=== PATIENT | male | born 1995 | race Caucasian/White ===

== ENCOUNTER 2024-11-17 11:33 | Observation (INO) ==
--- NOTE | 2024-11-17 12:10 | ED.PDOC ---
General ED Provider: Dr. HCERYL DICKEY MD Chief Complaint: Wound Check Stated Complaint: Patient is a 28-year-old with no significant past medical history who presents with complaint of headache, body aches, fever, chills, nasal congestion, cough and sores. The patient states that his respiratory symptoms started about a week ago. Patient states that cough is productive of yellow-green phlegm. Patient denies any chest pain or shortness of breath. Patient had nausea and vomiting earlier but they have now resolved. Patient denies any abdominal pain or urinary symptoms. Patient states that he has observed the skin lesions in his buttock area about 2 weeks ago and one of the lesions he has felt has been growing and deep. Patient and family ember deny any discharge. Patient denies any history of MRSA. Patient denies any other symptoms at this point of time. Time Seen by Provider: 11/17/24 11:41 Mode of Arrival: Walk-In Information Source: Patient Exam Limitations: No limitations Nursing and Triage Documentation Reviewed and Agree: Yes What is Opioid Naive?: *Opioid Naive implies the patient is not already taking opioids or not chronically receiving opioids on a daily basis. *PRN dosing is not "usually" associated with tolerance. *Patients are at higher risk of over-sedation and aspiration. What is Opioid Tolerant?: *Opioid Tolerance implies less than the expected response to an opioid. *Acquired tolerance is defined by the patient taking 60mg of oral morphine daily (or equianalgesic dose of another opioid) for 1 week or more. *Often associated with chronic pain. *May take more than usual dose to achieve desired pain control. Review of Systems Review Of Systems Constitutional: Reports Fever Eyes: Reports No symptoms Ears, Nose, Mouth, Throat: Reports Nose discharge Respiratory: Reports Cough; Denies Shortness of Breath Cardiac: Denies Chest pain, Lightheadedness, Palpitations or Syncope GI: Reports No symptoms : Reports No symptoms Musculoskeletal: Reports No symptoms Skin: Reports Lesions (Multiple scabbed lesions in the gluteal cleft in the gluteal area bilaterally, an abscess in the right axilla. The abscess in right axilla is about a quarter size, raised tender and fluctuant.) Neurological: Reports No symptoms Endocrine: Reports No symptoms Hematologic/Lymphatic: Reports No symptoms All Other Systems: Reviewed and Negative [facility] Family History Mother Cancer MATERNAL GRANDFATHER Diabetes Social History Smoking and tobacco status: Current every day smoker Tobacco type: e-cigarettes Tobacco: How many years used: 10 (1 pack per week, pt reports vapes constantly) Smokeless tobacco user: other Alcohol intake: former Year quit: 2023 Details: pt reports quit all alcohol one year ago Surgical History H/O wisdom tooth extraction K08.409 - Partial loss of teeth, unspecified cause, unspecified class (ICD- 10) Physical Exam Physical Exam Appearance: Reports Ill-appearing Ill-appearing: Mild Pain Distress: None Eyes: Reports ELAINE, EOMI and Conjunctiva clear ENT: Reports Nose normal and Oropharynx normal; Denies Erythema or Exudate Neck: Supple Respiratory: Reports Breath sounds clear, Breath sounds equal and Respirations nonlabored Cardiovascular: Reports Pulses normal, No murmur and Tachycardia GI/: Reports Soft, Nontender and Bowel sounds normal Musculoskeletal: Reports Normal strength and ROM intact Skin: Reports Other (Multiple skin lesions,, superficial abscesses, few with form scabs and few with some tunneling of the lesions in the gluteal area in the intergluteal cleft. There is a quarter sized abscess in the right axillary fold which is tender, raised and fluctuant.) Neurological: Reports Sensation intact and Motor intact Psychiatric: Reports Mood appropriate Procedures Incision and Drainage Site: Right axilla Instrument Used: Other (There was a central opening in the lesion in the right axilla and with pressure the opening opened up and about 3 cc of pus was drained. The pus was sent for cultures. Patient tolerated the procedure well and there were no complications.) I & D Procedure: Yes Sterile dressing applied; No Packing placed Lidocaine Used: No Type of Drainage: Present Pus Was Culture Obtained?: Yes Re-Evaluation Re-Evaluation Time of Re-Evaluation: 13:05 Status: Unchanged (The patient's partner called as he now discovered he has a big bump in his right armpit. On examination patient has an abscess which has an opening in the center on applying pressure, about 3 cc of pus was drained. The discharge was sent for cultures.) Physician Notification Case Discussed Admit To: Inpatient Consult With: Danyel Traore NP Critical Care Note Critical Care Note Total Critical Care Time (mins): 40 Course Course 11/17/24 12:35 11/17/24 12:35 Orders, Labs, Meds: Lab Review 11/17/24 11/17/24 11/17/24 12:07 12:12 12:35 WBC 2.96 L RBC 3.77 L Hgb 11.0 L Hct 31.0 L MCV 82.2 MCH 29.2 MCHC 35.5 H RDW Coeff of Hakan 12.2 Plt Count 166 Immature Gran % (Auto) 2.0 Neut % (Auto) 18.2 L Lymph % (Auto) 21.3 Williamson % (Auto) 54.4 H Eos % (Auto) 3.4 Baso % (Auto) 0.7 Neut # (Auto) 0.5 L Lymph # (Auto) 0.6 Williamson # (Auto) 1.6 Eos # (Auto) 0.1 Baso # (Auto) 0.0 Immature Gran # (Auto) 0.1 Sodium 131.9 L Potassium 2.91 L Chloride 93.4 L Carbon Dioxide 27.4 Anion Gap 14.01 BUN 6.7 L Creatinine 0.64 Estimated GFR (MDRD) 151.00 BUN/Creatinine Ratio 10.46 Glucose 157.3 H Hemoglobin A1c 4.93 Lactic Acid 2.35 H Calcium 8.72 Magnesium 1.86 Total Bilirubin 1.53 H AST 71.5 H ALT 29.2 Alkaline Phosphatase 102.7 Total Creatine Kinase < 20.0 L Total Protein 6.43 Albumin 3.49 L Globulin 2.94 Albumin/Globulin Ratio 1.18 Procalcitonin Urine Color Yellow Urine Clarity Clear Urine pH 6.5 Ur Specific [place] 1.015 Urine Protein 2+ H Urine Glucose (UA) Negative Urine Ketones Negative Urine Blood Trace-intact H Urine Nitrite Negative Urine Bilirubin Negative Urine Urobilinogen 2.0 H Ur Leukocyte Esterase Negative Urine Microscopic RBC 2-5 Ur Squamous Epith Cells 0-2 Urine Opiates Screen Negative Ur Oxycodone Screen Negative Urine Methadone Screen Negative Ur Barbiturates Screen Negative U Tricyclic Antidepress Negative Ur Phencyclidine Scrn Negative Ur Amphetamine Screen Negative U Methamphetamines Scrn Negative U Benzodiazepines Scrn Negative Urine Cocaine Screen Negative U Cannabinoids Screen Negative Influ A Molecular Assay Negative by naat Influ B Molecular Assay Negative by naat SARS CoV-2 RNA Rapid MARSHALL Negative 11/17/24 11/17/24 15:06 15:25 WBC RBC Hgb Hct MCV MCH MCHC RDW Coeff of Hakan Plt Count Immature Gran % (Auto) Neut % (Auto) Lymph % (Auto) Williamson % (Auto) Eos % (Auto) Baso % (Auto) Neut # (Auto) Lymph # (Auto) Williamson # (Auto) Eos # (Auto) Baso # (Auto) Immature Gran # (Auto) Sodium Potassium Chloride Carbon Dioxide Anion Gap BUN Creatinine Estimated GFR (MDRD) BUN/Creatinine Ratio Glucose Hemoglobin A1c Lactic Acid 0.97 Calcium Magnesium Total Bilirubin AST ALT Alkaline Phosphatase Total Creatine Kinase Total Protein Albumin Globulin Albumin/Globulin Ratio Procalcitonin 0.57 H Urine Color Urine Clarity Urine pH Ur Specific [place] Urine Protein Urine Glucose (UA) Urine Ketones Urine Blood Urine Nitrite Urine Bilirubin Urine Urobilinogen Ur Leukocyte Esterase Urine Microscopic RBC Ur Squamous Epith Cells Urine Opiates Screen Ur Oxycodone Screen Urine Methadone Screen Ur Barbiturates Screen U Tricyclic Antidepress Ur Phencyclidine Scrn Ur Amphetamine Screen U Methamphetamines Scrn U Benzodiazepines Scrn Urine Cocaine Screen U Cannabinoids Screen Influ A Molecular Assay Influ B Molecular Assay SARS CoV-2 RNA Rapid MARSHALL Orders Category Date Time Status PLACE PATIENT OBSERVATION .TO [facility] (MONITORED BED ADMISSION 11/17/24 15:07 Active ) ACTIVITY .Early Mobilization for VTE Prevention CARE 11/17/24 15:07 Active INTAKE & OUTPUT Q8HR CARE 11/17/24 15:05 Active TELEMETRY MONITORING TELE CARE 11/17/24 15:07 Active VITAL SIGNS Q8HR CARE 11/17/24 15:05 Active BLOOD CULTURE Stat LAB 11/17/24 12:42 Received CBC W/ AUTO DIFF DAILY@0600 LAB 11/18/24 06:00 Ordered CBC W/ AUTO DIFF DAILY@0600 LAB 11/19/24 06:00 Ordered CBC W/ AUTO DIFF Stat LAB 11/17/24 12:35 Completed CK [CREATINE KINASE] Stat LAB 11/17/24 12:35 Completed CMP [COMPREHENSIVE METABOLIC PANEL] Stat LAB 11/17/24 12:35 Completed COMPREHENSIVE METABOLIC PANEL DAILY@0600 LAB 11/18/24 06:00 Ordered COMPREHENSIVE METABOLIC PANEL DAILY@0600 LAB 11/19/24 06:00 Ordered COVID [SARS COV-2 RNA RAPID MARSHALL] Stat LAB 11/17/24 12:07 Completed CULTURE WOUND [WOUND CULTURE] Stat LAB 11/17/24 13:15 Received FLU A & B MOLECULAR [FLU A/B MOLECULAR] Stat LAB 11/17/24 12:07 Completed HEMOGLOBIN A1C Stat LAB 11/17/24 12:35 Completed LACTIC ACID Stat LAB 11/17/24 12:35 Completed LACTIC ACID Stat LAB 11/17/24 15:06 Completed LEGIONELLA URINARY ANTIGEN Routine LAB 11/17/24 12:10 Received MAGNESIUM Stat LAB 11/17/24 12:35 Completed MRSA SCREEN Routine LAB 11/17/24 20:35 Received PROCALCITONIN Stat LAB 11/17/24 15:25 Completed SPUTUM CULTURE Routine LAB 11/17/24 15:05 Uncollected STREP PNEUMO AG, URINE Routine LAB 11/17/24 12:10 Received UA [URINALYSIS C & S IF INDICATED] Stat LAB 11/17/24 12:12 Completed URINE DRUG SCREEN (RAPID FOR ED) [DRUG SCREEN, URINE, LAB 11/17/24 12:12 Completed RAPID] Stat Acetaminophen [Tylenol] Meds 11/17/24 15:07 Active 650 mg PO Q4H PRN Azithromycin Inj [Zithromax] 500 mg Meds 11/18/24 09:00 Active 0.9 % Sodium Chloride [Sodium Chloride] 250 ml IV DAILY Azithromycin Inj [Zithromax] 500 mg Meds 11/17/24 14:49 Discontinued 0.9 % Sodium Chloride [Sodium Chloride] 250 ml IV ONCE Ceftriaxone 1 gm Vial [Rocephin 1 gm Vial] Meds 11/17/24 14:49 Discontinued 1 gm IVP ONCE ONE Ceftriaxone/D5w 1 gm Premix [Rocephin 1 gm/50 ml D5w] Meds 11/18/24 09:00 Active 1 gm in 50 ml IV DAILY Ketorolac Tromethamine [Toradol] Meds 11/17/24 13:59 Discontinued 30 mg IVP ONCE ONE Potassium Chloride [K-Dur] Meds 11/17/24 14:31 Discontinued 40 meq PO ONCE STA Sodium Chloride 0.9% [Sodium Chloride] 1,000 ml Meds 11/17/24 15:30 Active IV 100 mls/hr Sodium Chloride 0.9% [Sodium Chloride] 1,000 ml Meds 11/17/24 13:59 Discontinued IV BOLUS CHEST, 1V AP ONLY Stat RADS 11/17/24 12:03 Completed Medications Generic Name Dose Route Start Last Admin Trade Name Normanq PRN Reason Stop Dose Admin Acetaminophen 650 mg 11/17/24 15:07 11/17/24 23:35 Acetaminophen 325 Mg Tablet PO 650 mg Q4H PRN Administration Mild Pain Albuterol/Ipratropium 3 ml 11/17/24 18:00 11/17/24 23:12 Ipratropium/Albuterol Vial.Neb NEB 3 ml RTQ6H POOJA Administration Sodium Chloride 1,000 mls @ 100 mls/hr 11/17/24 15:30 11/17/24 20:40 Sodium Chloride IV 100 mls/hr .Q10H POOJA Administration CEFTRIAXONE/D5W 1 GM PREMIX 1 gm in 50 mls @ 100 mls/hr 11/18/24 09:00 Rocephin 1 Gm/50 Ml D5w IV 11/21/24 08:59 DAILY POOJA Azithromycin 500 mg/ Sodium 250 mls @ 250 mls/hr 11/18/24 09:00 Chloride IV 11/21/24 08:59 DAILY POOJA Nicotine 1 patch 11/17/24 21:30 11/17/24 22:07 Nicotine 21 Mg Patch.Td24 TD 1 patch DAILY POOJA Administration Saccharomyces Boulardii 250 mg 11/17/24 21:00 11/17/24 22:06 Saccharomyces Boulardii 250 Mg Capsule PO 250 mg BID POOJA Administration Discontinued Medications Generic Name Dose Route Start Last Admin Trade Name Ivan PRN Reason Stop Dose Admin Ceftriaxone Sodium 1 gm 11/17/24 14:49 11/17/24 16:02 Ceftriaxone 1 Gm Vial IVP 11/17/24 14:50 1 gm ONCE ONE Administration Sodium Chloride 1,000 mls @ 1,000 mls/hr 11/17/24 13:59 11/17/24 14:30 Sodium Chloride IV 11/17/24 14:58 1,000 mls/hr BOLUS ONE Administration Azithromycin 500 mg/ Sodium 250 mls @ 250 mls/hr 11/17/24 14:49 11/17/24 16:05 Chloride IV 11/17/24 15:48 250 mls/hr ONCE ONE Administration Ketorolac Tromethamine 30 mg 11/17/24 13:59 11/17/24 14:31 Ketorolac Tromethamine 30 Mg/Ml Vial IVP 11/17/24 14:00 30 mg ONCE ONE Administration Potassium Chloride 40 meq 11/17/24 14:31 11/17/24 16:01 Potassium Chloride 20 Meq Tab PO 11/17/24 14:32 40 meq ONCE STA Administration Vital Signs: Temp Pulse Resp BP Pulse Ox 11/17/24 11:38 102.3 F H 112 H 20 130/87 100 Differential diagnosis include but not limited to flu, COVID, RSV, bacteremia, multiple skin abscesses, pneumonia, UTI, type 2 diabetes, MRSA infection. ER course: Patient is a 28-year-old male who presented with fever, cough, weakness and multiple skin abscesses. Labs show a white count of 2.96 and a hemoglobin of 11. The potassium was 2.9 and the lactic acid was 2.35. UA is negative for UTI. Patient has elevated blood glucose. In light of multiple skin abscesses, workup for type 2 diabetes was started with hemoglobin A1c. Meanwhile patient had a drainage from the right axillary region and with localized squeezing technique about 3 cc of pus was drained, wound cultures were sent for culture and sensitivity. Chest x-ray shows patient has right sided pneumonia. Patient was started on ceftriaxone and azithromycin. Ceftriaxone would cover his lungs and skin for possible staph infections. Discussed with Ms. León NP for the hospitalist and the patient was admitted for further management. Discharge Plan Discharge Patient Disposition: ADMITTED INPATIENT Discharge Problem: Hypokalemia, Elevated lactic acid level CAP (community acquired pneumonia) Qualifiers: Laterality: right Lung location: unspecified part of lung Qualified Code(s): J 18.9 - Pneumonia, unspecified organism Abscess of skin and subcutaneous tissue Qualifiers: Site of cutaneous abscess: unspecified site Qualified Code(s): L02.91 - Cutaneous abscess, unspecified Did you review [place] [employer] for ALL controlled substances?: Not Applicable ED Provider: CHERYL DICKEY Condition: Stable
[2024-11-17 12:39] LABS: MOLECULAR FLU A NEGATIVE BY NAAT (NEGATIVE); MOLECULAR FLU B NEGATIVE BY NAAT (NEGATIVE); SARS COV-2 RNA RAPID NAAT NEGATIVE (NEGATIVE)
[2024-11-17 12:56] LABS: BASOPHILS % (AUTO) 0.7 % (0.0-3.0); EOSINOPHILS # (AUTO) 0.1 K/ul (0.0-0.7); EOSINOPHILS % (AUTO) 3.4 % (0.0-7.0); IMMATURE GRANULOCYTE # (AUTO) 0.1 (0.0-1.0); LYMPHOCYTES # (AUTO) 0.6 K/uL (0.60-3.4); LYMPHOCYTES % (AUTO) 21.3 (10.0-50.0); MEAN CORPUSCULAR HEMOGLOBIN 29.2 pg (27.0-31.0); MEAN CORPUSCULAR HGB CONC 35.5 (31.8-35.4); MEAN CORPUSCULAR VOLUME 82.2 fl (80.0-94.0); MONOCYTES # (AUTO) 1.6 K/uL (0.4-2.0); MONOCYTES % (AUTO) 54.4 (0-10); NEUTROPHILS # (AUTO) 0.5 K/ul (2.0-6.9); NEUTROPHILS % (AUTO) 18.2 % (42.2-75.2); PLATELET COUNT 166 10^3/uL (140-440); RDW COEFFICIENT OF VARIATION 12.2 % (11.6-14.8); RED BLOOD COUNT 3.77 10^6/ul (4.70-6.10); WHITE BLOOD COUNT 2.96 K/ul (4.2-10.2)
[2024-11-17 13:03] LABS: BILIRUBIN,URINE Negative (NEGATIVE); CLARITY,URINE Clear (CLEAR); COLOR,URINE Yellow (YELLOW); GLUCOSE, URINE (UA) Negative (NEGATIVE); KETONES,URINE Negative (NEGATIVE); LEUKOCYTE ESTERASE ,URINE Negative (NEGATIVE); NITRITE,URINE Negative (NEGATIVE); PH,URINE 6.5 (5-9); PROTEIN,URINE 2+ (NEGATIVE); URINE, BLOOD Trace-intact (NEGATIVE)
[2024-11-17 13:06] LABS: SQUAMOUS EPITHELIAL CELL,UR 0-2 (0-5)
[2024-11-17 13:10] LABS: AMPHETAMINE SCREEN,URINE NEGATIVE (NEGATIVE); BARBITURATE SCREEN,URINE NEGATIVE (NEGATIVE); BENZODIAZEPINES SCREEN,URINE NEGATIVE (NEGATIVE); CANNABINOID SCREEN,URINE NEGATIVE (NEGATIVE); COCAIN SCREEN,URINE NEGATIVE (NEGATIVE); METHADONE URINE SCREEN NEGATIVE (NEGATIVE); METHAMPHETAMINES SCREEN,URINE NEGATIVE (NEGATIVE); OPIATE SCREEN,URINE NEGATIVE (NEGATIVE); OXYCODONE URINE SCREEN NEGATIVE (NEGATIVE); PHENCYCLIDINE SCREEN,URINE NEGATIVE (NEGATIVE); TRICYCLIC ANTIDEPRESSANTS URIN NEGATIVE (NEGATIVE)
[2024-11-17 13:11] LABS: ALANINE AMINOTRANSFERASE 29.2 U/L (0-50); ALBUMIN 3.49 g/dL (3.5-5.0); ALKALINE PHOSPHATASE 102.7 U/L (38-126); ASPARTATE AMINO TRANSFERASE 71.5 U/L (17-59); BILIRUBIN,TOTAL 1.53 mg/dL (0.2-1.3); BLOOD UREA NITROGEN 6.7 mg/dL (9-20); CALCIUM 8.72 mg/dL (8.4-10.2); CARBON DIOXIDE 27.4 mmol/L (22-30.0); CHLORIDE 93.4 mmol/L (98-107); CREATINE KINASE < 20.0 U/L (55-170); CREATININE 0.64 mg/dL (0.60-1.10); GLUCOSE 157.3 mg/dL (74-106); POTASSIUM 2.91 mmol/L (3.5-5.1); SODIUM 131.9 mmol/L (134.5-145); TOTAL PROTEIN 6.43 g/dL (6.3-8.2)
[2024-11-17] MEDS ORDERED: TORADOL IM ONE (13:58)
[2024-11-17] MEDS: SODIUM CHLORIDE 1,000 ML IV ONE (14:30)
[2024-11-17] MEDS: TORADOL IVP ONE (14:31)
--- NOTE | 2024-11-17 14:41 | DI ---
EXAM: CHEST RADIOGRAPH (1 VIEW) TECHNIQUE: Frontal Chest Radiograph. HISTORY: Shortness of breath COMPARISON: None. FINDINGS: Lines, Tubes, Devices: None Lungs and Pleura: Right mid lung opacities. No pleural effusion or pneumothorax. Cardiac silhouette: Normal. Bones: No acute abnormality. IMPRESSION: Right mid lung opacities concerning for pneumonia. Clinical and imaging follow-up to ensure resolution and exclude other etiologies.
[2024-11-17] MEDS: TYLENOL PO PRN (16:00)
[2024-11-17] MEDS: K-DUR PO STA (16:01)
[2024-11-17] MEDS: ROCEPHIN 1 GM VIAL IVP ONE (16:02)
[2024-11-17] MEDS: ZITHROMAX 500 MG in SODIUM CHLORIDE 250 ML IV ONE (16:05)
[2024-11-17] MEDS: DUONEB NEB SCH (18:02)
--- NOTE | 2024-11-17 19:46 | PCM ---
Date of Service Date Seen by Provider: 11/17/24 Time Seen by Provider: 16:00 Admit Day/Time Admission Date: 11/17/24 Reason for Admission Chief Complaint: SEPSIS,CAP,SKIN ABSCESS Hospital Provider Hospital Provider[facility] History of Present Illness History of Present Illness: 28 yo male presented to the ER initially for wound check to buttocks. Patient states he has issues with "boils" to this region and also found to have one to his R axilla. Concerned for infection. ER provider drainage 3 cc out of R axilla with culture. Upon arrival to ER patient had 102 fever ad tachycardia 112. Reports he has had a cough and not felt well for the past 8 days. Cough with productive yellow/green sputum the last 2-3 days. Found to have R lobe pneumonia, elevated lactic acid, low WBC, low sodium, and low potassium. Admitted to [facility] observation. Case Discussed With Case Discussed With: Patient's case was discussed with the ER Physicians, Dr. Rogers. Allergies Allergies Allergy/AdvReac Type Severity Reaction Status Date / Time No Known Allergies Allergy Unverified 11/17/24 11:41 Current Medications Home Medications Acetaminophen (Acetaminophen 325 Mg Tablet) 650 mg PO Q4H PRN PRN Reason: Mild Pain Last Admin: 11/17/24 16:00 Dose: 650 mg Albuterol/Ipratropium (Ipratropium/Albuterol Vial.Neb) 3 ml NEB RTQ6H POOJA Last Admin: 11/17/24 18:02 Dose: 3 ml Sodium Chloride (Sodium Chloride) 1,000 mls @ 100 mls/hr IV .Q10H POOJA Last Admin: 11/17/24 20:40 Dose: 100 mls/hr CEFTRIAXONE/D5W 1 GM PREMIX (Rocephin 1 Gm/50 Ml D5w) 1 gm in 50 mls @ 100 mls/hr IV DAILY POOJA Stop: 11/21/24 08:59 Azithromycin 500 mg/ Sodium (Chloride) 250 mls @ 250 mls/hr IV DAILY POOJA Stop: 11/21/24 08:59 Nicotine (Nicotine 21 Mg Patch.Td24) 1 patch TD DAILY POOJA Saccharomyces Boulardii (Saccharomyces Boulardii 250 Mg Capsule) 250 mg PO BID POOJA 1 [No Reported Medications] 11/17/24 [History Confirmed 11/17/24] Opioid Naive vs. Tolerant Does Patient Take Opioids?: No Is Patient Opioid Naive?: Yes What is Opioid Naive?: *Opioid Naive implies the patient is not already taking opioids or not chronically receiving opioids on a daily basis. *PRN dosing is not "usually" associated with tolerance. *Patients are at higher risk of over-sedation and aspiration. Is Patient Opioid Tolerant?: No What is Opioid Tolerant?: *Opioid Tolerance implies less than the expected response to an opioid. *Acquired tolerance is defined by the patient taking 60mg of oral morphine daily (or equianalgesic dose of another opioid) for 1 week or more. *Often associated with chronic pain. *May take more than usual dose to achieve desired pain control. Review of Systems Constitutional: Reports Fever Head: Reports Normocephalic Eyes: Reports No symptoms Ears: Reports No symptoms Nose: Reports No symptoms Mouth: Reports No symptoms Throat: Reports No symptoms Cardiovascular: Reports No symptoms Respiratory: Reports Cough and Wheeze Gastrointestinal: Reports No symptoms Genitourinary: Reports No Symptoms Musculoskeletal: Reports No symptoms Dermatologic: Reports Skin Changes (multiple superficial abscesses to buttocks, 1 to armpit) Endocrine: Reports No symptoms Hematology: Reports No symptoms Immunology: Reports No symptoms Neurological: Reports No symptoms Psychiatric: Reports No symptoms Physical examination Most Recent Vital Signs: Most Recent Vital Signs Temperature 102.3 F H 11/17/24 11:38 Temperature Source Infrared 11/17/24 11:38 Pulse Rate 112 H 11/17/24 11:38 Respiratory Rate 20 11/17/24 11:38 Blood Pressure 130/87 11/17/24 11:38 O2 Sat by Pulse Oximetry 100 11/17/24 11:38 Height 5 ft 8 in 11/17/24 11:38 Weight 65 kg 11/17/24 11:38 Appearance: Positive No Apparent Distress, Alert and Oriented x3 and Ill- Appearing Skin: Positive Warm, Good Turgor and Other (1 pea sized area to L buttock with tunneling, 2-3 other scattered healing superficial abscesses to bileral buttocks, quarter/half dollar sized area to R axilla, no drainage present, erythema and swelling present) HEENT: Positive Normocephalic and PERRLA Neck: Positive Supple and Midline Trachea Chest/Lungs: Positive Symmetrical With Equal Breath Sounds, Rhonci, Wheezes and Good Air Movement all 4 Lung Lazar Heart: Positive RRR and Pulses Normal GI/: Positive Soft, Nontender, Bowel Sounds Normal and No Distention Musculoskeletal: Positive Not Examined Extremities: Positive Intact Peripheral Pulses, Stable Joints Without Laxity and Good ROM in All Joints Neurological: Positive Sensation Intact, Motor intact, Reflexes Intact, Alert, Oriented and Muscle Strength 5/5 in Upper and Lower Extremities Bilaterally Labs This Visit Labs This Visit: Labs This Visit 11/17/24 11/17/24 11/17/24 12:07 12:12 12:35 WBC 2.96 L RBC 3.77 L Hgb 11.0 L Hct 31.0 L MCV 82.2 MCH 29.2 MCHC 35.5 H RDW Coeff of Hakan 12.2 Plt Count 166 Immature Gran % (Auto) 2.0 Neut % (Auto) 18.2 L Lymph % (Auto) 21.3 Hunt % (Auto) 54.4 H Eos % (Auto) 3.4 Baso % (Auto) 0.7 Neut # (Auto) 0.5 L Lymph # (Auto) 0.6 Hunt # (Auto) 1.6 Eos # (Auto) 0.1 Baso # (Auto) 0.0 Immature Gran # (Auto) 0.1 Sodium 131.9 L Potassium 2.91 L Chloride 93.4 L Carbon Dioxide 27.4 Anion Gap 14.01 BUN 6.7 L Creatinine 0.64 Estimated GFR (MDRD) 151.00 BUN/Creatinine Ratio 10.46 Glucose 157.3 H Hemoglobin A1c 4.93 Lactic Acid 2.35 H Calcium 8.72 Magnesium 1.86 Total Bilirubin 1.53 H AST 71.5 H ALT 29.2 Alkaline Phosphatase 102.7 Total Creatine Kinase < 20.0 L Total Protein 6.43 Albumin 3.49 L Globulin 2.94 Albumin/Globulin Ratio 1.18 Procalcitonin Urine Color Yellow Urine Clarity Clear Urine pH 6.5 Ur Specific [place] 1.015 Urine Protein 2+ H Urine Glucose (UA) Negative Urine Ketones Negative Urine Blood Trace-intact H Urine Nitrite Negative Urine Bilirubin Negative Urine Urobilinogen 2.0 H Ur Leukocyte Esterase Negative Urine Microscopic RBC 2-5 Ur Squamous Epith Cells 0-2 Urine Opiates Screen Negative Ur Oxycodone Screen Negative Urine Methadone Screen Negative Ur Barbiturates Screen Negative U Tricyclic Antidepress Negative Ur Phencyclidine Scrn Negative Ur Amphetamine Screen Negative U Methamphetamines Scrn Negative U Benzodiazepines Scrn Negative Urine Cocaine Screen Negative U Cannabinoids Screen Negative Influ A Molecular Assay Negative by naat Influ B Molecular Assay Negative by naat SARS CoV-2 RNA Rapid MARSHALL Negative 11/17/24 11/17/24 15:06 15:25 WBC RBC Hgb Hct MCV MCH MCHC RDW Coeff of Hakan Plt Count Immature Gran % (Auto) Neut % (Auto) Lymph % (Auto) Hunt % (Auto) Eos % (Auto) Baso % (Auto) Neut # (Auto) Lymph # (Auto) Hunt # (Auto) Eos # (Auto) Baso # (Auto) Immature Gran # (Auto) Sodium Potassium Chloride Carbon Dioxide Anion Gap BUN Creatinine Estimated GFR (MDRD) BUN/Creatinine Ratio Glucose Hemoglobin A1c Lactic Acid 0.97 Calcium Magnesium Total Bilirubin AST ALT Alkaline Phosphatase Total Creatine Kinase Total Protein Albumin Globulin Albumin/Globulin Ratio Procalcitonin 0.57 H Urine Color Urine Clarity Urine pH Ur Specific [place] Urine Protein Urine Glucose (UA) Urine Ketones Urine Blood Urine Nitrite Urine Bilirubin Urine Urobilinogen Ur Leukocyte Esterase Urine Microscopic RBC Ur Squamous Epith Cells Urine Opiates Screen Ur Oxycodone Screen Urine Methadone Screen Ur Barbiturates Screen U Tricyclic Antidepress Ur Phencyclidine Scrn Ur Amphetamine Screen U Methamphetamines Scrn U Benzodiazepines Scrn Urine Cocaine Screen U Cannabinoids Screen Influ A Molecular Assay Influ B Molecular Assay SARS CoV-2 RNA Rapid MARSHALL Imaging Imaging: EXAM: CHEST RADIOGRAPH (1 VIEW) TECHNIQUE: Frontal Chest Radiograph. HISTORY: Shortness of breath COMPARISON: None. FINDINGS: Lines, Tubes, Devices: None Lungs and Pleura: Right mid lung opacities. No pleural effusion or pneumothorax. Cardiac silhouette: Normal. Bones: No acute abnormality. IMPRESSION: Right mid lung opacities concerning for pneumonia. Clinical and imaging follow-up to ensure resolution and exclude other etiologies. Review Statement Review Statement: I have independently reviewed and interpreted the labs/EKGs/imaging that were ordered by the ER provider. I have reviewed all outside records that are available currently in our EMR including imaging/notes/labs from previous visits. Plan Plan: 1. Sepsis in setting of CAP and Axilla Abscess - blood cultures pending, IV fluids started in ER but sepsis bolus was not given, lactic acid improved with 1L fluids, rocephin and azith ordered 2. CAP - rocephin and azith, nebs ordered d/t wheezing, not hypoxic so holding on steroids, mrsa, strep pneumo, legionella, and sputum ordered 3. Axilla Abscess - covering with rocephin, wound culture pending 4. Hidradenitis Suppurativa - discussed cleaning habits and importance of keeping areas dry when able, patient would likely benefit from daily doxycyline for prevention 5.Hyponatremia - mild, IV fluids ordered 6. Hypokalemia -mild, replacement ordered DVT Prophylaxis: Ambulation Time Spent: Greater than 80 minutes spent with patient, 50% of the time spent with this patient was devoted to counseling and coordination of care. [facility] Plannin minutes spent discussing advance care planning. Smoking Cessation: 3-10 minutes spent discussing smoking cessation. Disposition: Admit to: Med/Surg Observation Full Code Discussed Plan of Care with Dr. Nicolás Goss. Medications Medication Orders: Medications Ordered Category Date Time Status Acetaminophen [Tylenol] Meds 11/17/24 15:07 Active 650 mg PO Q4H PRN Azithromycin Inj [Zithromax] 500 mg Meds 11/18/24 09:00 Active 0.9 % Sodium Chloride [Sodium Chloride] 250 ml IV DAILY Ceftriaxone/D5w 1 gm Premix [Rocephin 1 gm/50 ml D5w] Meds 11/18/24 09:00 Active 1 gm in 50 ml IV DAILY Ipratropium/Albuterol Neb [Duoneb] Meds 11/17/24 18:00 Active 3 ml NEB RTQ6H Sodium Chloride 0.9% [Sodium Chloride] 1,000 ml Meds 11/17/24 15:30 Active IV 100 mls/hr
[2024-11-17] MEDS: SODIUM CHLORIDE 1,000 ML IV SCH (20:40)
[2024-11-17 21:32] VITALS: BMI 22.1
[2024-11-17] MEDS: FLORASTOR PO SCH (22:06)
[2024-11-17] MEDS: NICODERM 21 MG TD SCH (22:07)
[2024-11-18 05:42] LABS: BASOPHILS % (AUTO) 0.6 % (0.0-3.0); EOSINOPHILS # (AUTO) 0.1 K/ul (0.0-0.7); EOSINOPHILS % (AUTO) 2.8 % (0.0-7.0); HEMATOCRIT 27.6 % (42.0-52.0); HEMOGLOBIN 9.5 g/dl (14.0-18.0); IMMATURE GRANULOCYTE # (AUTO) 0.1 (0.0-1.0); IMMATURE GRANULOCYTE % (AUTO) 2.5 % (0.0-5.0); LYMPHOCYTES # (AUTO) 1.2 K/uL (0.60-3.4); LYMPHOCYTES % (AUTO) 38.3 (10.0-50.0); MEAN CORPUSCULAR HGB CONC 34.4 (31.8-35.4); MEAN CORPUSCULAR VOLUME 84.1 fl (80.0-94.0); MONOCYTES # (AUTO) 1.2 K/uL (0.4-2.0); MONOCYTES % (AUTO) 37.4 (0-10); NEUTROPHILS # (AUTO) 0.6 K/ul (2.0-6.9); NEUTROPHILS % (AUTO) 18.4 % (42.2-75.2); PLATELET COUNT 167 10^3/uL (140-440); RDW COEFFICIENT OF VARIATION 12.3 % (11.6-14.8); RED BLOOD COUNT 3.28 10^6/ul (4.70-6.10); WHITE BLOOD COUNT 3.21 K/ul (4.2-10.2)
[2024-11-18 06:04] LABS: ALANINE AMINOTRANSFERASE 44.3 U/L (0-50); ALBUMIN 3.02 g/dL (3.5-5.0); ALKALINE PHOSPHATASE 120.3 U/L (38-126); ASPARTATE AMINO TRANSFERASE 54.5 U/L (17-59); BILIRUBIN,TOTAL 0.91 mg/dL (0.2-1.3); BLOOD UREA NITROGEN 6.8 mg/dL (9-20); CALCIUM 8.18 mg/dL (8.4-10.2); CARBON DIOXIDE 26.9 mmol/L (22-30.0); CHLORIDE 98.5 mmol/L (98-107); CREATININE 0.71 mg/dL (0.60-1.10); GLUCOSE 122.2 mg/dL (74-106); POTASSIUM 3.38 mmol/L (3.5-5.1); SODIUM 133.9 mmol/L (134.5-145); TOTAL PROTEIN 5.74 g/dL (6.3-8.2)
[2024-11-18] MEDS: ROCEPHIN 1 GM/50 ML D5W 1 GM/50 ML BAG IV SCH (08:40)
[2024-11-18] MEDS ORDERED: PHARM CONSULT:VANCO IV MAINTENANCE DOSING IV ONE (09:08)
[2024-11-18] MEDS: ZITHROMAX 500 MG in SODIUM CHLORIDE 250 ML IV SCH (09:13)
[2024-11-18] MEDS: VANCOMYCIN 1.5 GRAM/300 ML PREMIX 1.5 GM/300 ML BAG IV ONE (09:49)
[2024-11-18] MEDS: K-DUR PO ONE (09:58)
--- NOTE | 2024-11-18 12:26 | PCM.PROG ---
Date/Time Seen Date Seen by Provider: 11/18/24 Time Seen by Provider: 09:30 Provider Provider: RAYA SAMUEL, [facility] Chief Complaint Chief Complaint: SEPSIS,CAP,SKIN ABSCESS Subjective Subjective: Feeling some better today. Swelling improving to R axilla. Fever present overnight. Discussed further causes of skin abscesses. Objective Appearance: Positive No Apparent Distress, Alert and Oriented x3 and Ill- Appearing Chest/Lungs: Positive Symmetrical With Equal Breath Sounds, Clear to Auscultation Bilaterally and Good Air Movement all 4 Lung Lazar Heart: Positive RRR and Pulses Normal GI/: Positive Soft, Nontender, Bowel Sounds Normal and No Distention Musculoskeletal: Positive Not Examined Neurological: Positive Sensation Intact, Motor intact, Alert and Oriented Additional Findings: Swelling and erythema improving to R axilla area, no discharge R eye more swollen today from hitting on bedside table at home - no erythema or drainage Vital Signs Vital Signs: Vital Signs: Last 24 Hours 11/17/24 19:54 11/17/24 19:54 11/17/24 20:00 Temperature 97.3 F L Temperature Source Temporal Artery Scan Pulse Rate 71 Respiratory Rate 20 Blood Pressure Blood Pressure Mean Blood Pressure Left Arm 119/71 Blood Pressure Location Blood Pressure Position Supine O2 Sat by Pulse Oximetry 99 Oxygen Delivery Method Room Air Room Air Room Air Height 5 ft 8 in Weight 66.1 kg Telemetry Type Telemetry Monitoring Telemetry Heart Rate EKG OH Interval EKG QRS Interval Telemetry Strip Reading 11/17/24 21:00 11/17/24 22:00 11/17/24 22:30 Temperature Temperature Source Pulse Rate Respiratory Rate Blood Pressure Blood Pressure Mean Blood Pressure Left Arm Blood Pressure Location Blood Pressure Position O2 Sat by Pulse Oximetry Oxygen Delivery Method Room Air Room Air Height Weight Telemetry Type Remote Telemetry Telemetry Monitoring Started Telemetry Heart Rate 80 EKG OH Interval 0.15 EKG QRS Interval 0.08 Telemetry Strip Reading SR 11/17/24 23:00 11/17/24 23:34 11/18/24 00:00 Temperature 100.6 F H Temperature Source Temporal Artery Scan Pulse Rate Respiratory Rate Blood Pressure Blood Pressure Mean Blood Pressure Left Arm Blood Pressure Location Blood Pressure Position O2 Sat by Pulse Oximetry Oxygen Delivery Method Room Air Room Air Room Air Height Weight Telemetry Type Telemetry Monitoring Telemetry Heart Rate EKG OH Interval EKG QRS Interval Telemetry Strip Reading 11/18/24 01:00 11/18/24 01:00 11/18/24 02:00 Temperature Temperature Source Pulse Rate Respiratory Rate Blood Pressure Blood Pressure Mean Blood Pressure Left Arm Blood Pressure Location Blood Pressure Position O2 Sat by Pulse Oximetry Oxygen Delivery Method Room Air Room Air Height Weight Telemetry Type Remote Telemetry Telemetry Monitoring Continues Telemetry Heart Rate 102 H EKG OH Interval 0.15 EKG QRS Interval 0.06 Telemetry Strip Reading SINUS TACHYCARDIA 11/18/24 03:00 11/18/24 04:00 11/18/24 05:00 Temperature Temperature Source Pulse Rate Respiratory Rate Blood Pressure Blood Pressure Mean Blood Pressure Left Arm Blood Pressure Location Blood Pressure Position O2 Sat by Pulse Oximetry Oxygen Delivery Method Room Air Room Air Room Air Height Weight Telemetry Type Telemetry Monitoring Telemetry Heart Rate EKG OH Interval EKG QRS Interval Telemetry Strip Reading 11/18/24 05:21 11/18/24 06:00 11/18/24 07:00 Temperature 98.1 F Temperature Source Temporal Artery Scan Pulse Rate 98 Respiratory Rate 17 Blood Pressure 125/70 Blood Pressure Mean 88 Blood Pressure Left Arm Blood Pressure Location Left Arm Blood Pressure Position Supine O2 Sat by Pulse Oximetry 98 Oxygen Delivery Method Room Air Room Air Room Air Height Weight Telemetry Type Telemetry Monitoring Telemetry Heart Rate EKG OH Interval EKG QRS Interval Telemetry Strip Reading 11/18/24 07:00 11/18/24 08:00 11/18/24 08:00 Temperature Temperature Source Pulse Rate Respiratory Rate Blood Pressure Blood Pressure Mean Blood Pressure Left Arm Blood Pressure Location Blood Pressure Position O2 Sat by Pulse Oximetry Oxygen Delivery Method Room Air Room Air Height Weight Telemetry Type Remote Telemetry Telemetry Monitoring Continues Telemetry Heart Rate 91 EKG OH Interval 0.12 EKG QRS Interval 0.06 Telemetry Strip Reading NSR 11/18/24 09:00 11/18/24 10:00 11/18/24 11:00 Temperature Temperature Source Pulse Rate Respiratory Rate Blood Pressure Blood Pressure Mean Blood Pressure Left Arm Blood Pressure Location Blood Pressure Position O2 Sat by Pulse Oximetry Oxygen Delivery Method Room Air Room Air Room Air Height Weight Telemetry Type Telemetry Monitoring Telemetry Heart Rate EKG OH Interval EKG QRS Interval Telemetry Strip Reading Lab Results Lab Results: Lab Results: Last 24 Hours 11/18/24 11/17/24 11/17/24 05:17 15:25 15:06 WBC 3.21 L RBC 3.28 L Hgb 9.5 L Hct 27.6 L MCV 84.1 MCH 29.0 MCHC 34.4 RDW Coeff of Hakan 12.3 Plt Count 167 Immature Gran % (Auto) 2.5 Neut % (Auto) 18.4 L Lymph % (Auto) 38.3 [place] % (Auto) 37.4 H Eos % (Auto) 2.8 Baso % (Auto) 0.6 Neut # (Auto) 0.6 L Lymph # (Auto) 1.2 [place] # (Auto) 1.2 Eos # (Auto) 0.1 Baso # (Auto) 0.0 Immature Gran # (Auto) 0.1 Sodium 133.9 L Potassium 3.38 L Chloride 98.5 Carbon Dioxide 26.9 Anion Gap 11.88 BUN 6.8 L Creatinine 0.71 Estimated GFR (MDRD) 134.00 BUN/Creatinine Ratio 9.57 Glucose 122.2 H Hemoglobin A1c Lactic Acid 0.97 Calcium 8.18 L Magnesium Total Bilirubin 0.91 AST 54.5 ALT 44.3 Alkaline Phosphatase 120.3 Total Creatine Kinase Total Protein 5.74 L Albumin 3.02 L Globulin 2.72 Albumin/Globulin Ratio 1.11 Procalcitonin 0.68 H 0.57 H Urine Color Urine Clarity Urine pH Ur Specific Scott Urine Protein Urine Glucose (UA) Urine Ketones Urine Blood Urine Nitrite Urine Bilirubin Urine Urobilinogen Ur Leukocyte Esterase Urine Microscopic RBC Ur Squamous Epith Cells Urine Opiates Screen Ur Oxycodone Screen Urine Methadone Screen Ur Barbiturates Screen U Tricyclic Antidepress Ur Phencyclidine Scrn Ur Amphetamine Screen U Methamphetamines Scrn U Benzodiazepines Scrn Urine Cocaine Screen U Cannabinoids Screen Influ A Molecular Assay Influ B Molecular Assay SARS CoV-2 RNA Rapid MARSHALL 11/17/24 11/17/24 11/17/24 12:35 12:12 12:07 WBC 2.96 L RBC 3.77 L Hgb 11.0 L Hct 31.0 L MCV 82.2 MCH 29.2 MCHC 35.5 H RDW Coeff of [place]akan 12.2 Plt Count 166 Immature Gran % (Auto) 2.0 Neut % (Auto) 18.2 L Lymph % (Auto) 21.3 [place] % (Auto) 54.4 H Eos % (Auto) 3.4 Baso % (Auto) 0.7 Neut # (Auto) 0.5 L Lymph # (Auto) 0.6 [place] # (Auto) 1.6 Eos # (Auto) 0.1 Baso # (Auto) 0.0 Immature Gran # (Auto) 0.1 Sodium 131.9 L Potassium 2.91 L Chloride 93.4 L Carbon Dioxide 27.4 Anion Gap 14.01 BUN 6.7 L Creatinine 0.64 Estimated GFR (MDRD) 151.00 BUN/Creatinine Ratio 10.46 Glucose 157.3 H Hemoglobin A1c 4.93 Lactic Acid 2.35 H Calcium 8.72 Magnesium 1.86 Total Bilirubin 1.53 H AST 71.5 H ALT 29.2 Alkaline Phosphatase 102.7 Total Creatine Kinase < 20.0 L Total Protein 6.43 Albumin 3.49 L Globulin 2.94 Albumin/Globulin Ratio 1.18 Procalcitonin Urine Color Yellow Urine Clarity Clear Urine pH 6.5 Ur Specific Scott 1.015 Urine Protein 2+ H Urine Glucose (UA) Negative Urine Ketones Negative Urine Blood Trace-intact H Urine Nitrite Negative Urine Bilirubin Negative Urine Urobilinogen 2.0 H Ur Leukocyte Esterase Negative Urine Microscopic RBC 2-5 Ur Squamous Epith Cells 0-2 Urine Opiates Screen Negative Ur Oxycodone Screen Negative Urine Methadone Screen Negative Ur Barbiturates Screen Negative U Tricyclic Antidepress Negative Ur Phencyclidine Scrn Negative Ur Amphetamine Screen Negative U Methamphetamines Scrn Negative U Benzodiazepines Scrn Negative Urine Cocaine Screen Negative U Cannabinoids Screen Negative Influ A Molecular Assay Negative by naat Influ B Molecular Assay Negative by naat SARS CoV-2 RNA Rapid MARSHALL Negative Additional Comments Additional Comments: I have independently reviewed and interpreted the labs/EKGs/imaging ordered during this hospital stay. I have reviewed outside records that are available in our EMR that pertain to medical stay including imaging/notes/labs from previous visits. Active Medications Active Medications: Medications Generic Name Dose Route Start Last Admin Trade Name Freq PRN Reason Stop Dose Admin Acetaminophen 650 mg 11/17/24 15:07 11/17/24 23:35 Acetaminophen 325 Mg Tablet PO 650 mg Q4H PRN Administration Mild Pain Albuterol/Ipratropium 3 ml 11/17/24 18:00 11/18/24 11:23 Ipratropium/Albuterol Vial.Neb NEB 3 ml RTQ6H POOJA Administration Azithromycin 500 mg 11/18/24 21:00 Azithromycin 250 Mg Tablet PO 11/19/24 23:00 BEDTIME POOJA Sodium Chloride 1,000 mls @ 100 mls/hr 11/17/24 15:30 11/18/24 07:26 Sodium Chloride IV 100 mls/hr .Q10H POOJA Administration CEFTRIAXONE/D5W 1 GM PREMIX 1 gm in 50 mls @ 100 mls/hr 11/18/24 09:00 11/18/24 08:40 Rocephin 1 Gm/50 Ml D5w IV 11/21/24 08:59 100 mls/hr DAILY POOJA Administration VANCOMYCIN/WATER FOR INJ (PEG) 1 gm in 200 mls @ 200 mls/hr 11/18/24 14:00 Vancomycin 1 Gram/200 Ml Premix IV 11/21/24 13:59 Q8HR POOJA Nicotine 1 patch 11/17/24 21:30 11/18/24 08:40 Nicotine 21 Mg Patch.Td24 TD 1 patch DAILY POOJA Administration Saccharomyces Boulardii 250 mg 11/17/24 21:00 11/18/24 08:40 Saccharomyces Boulardii 250 Mg Capsule PO 250 mg BID POOJA Administration Plan Plan: 1. Sepsis in setting of CAP and Axilla Abscess - blood cultures pending, IV fluids started in ER but sepsis bolus was not given, lactic acid improved with 1L fluids, rocephin and azith ordered, added vanc today 2. CAP - rocephin and azith, nebs ordered d/t wheezing, not hypoxic so holding on steroids, mrsa, strep pneumo, legionella, and sputum ordered 3. Axilla Abscess - covering with rocephin, wound culture growth of gram pos cocci, added vanc to regimen 4. Hidradenitis Suppurativa - discussed cleaning habits and importance of keeping areas dry when able, patient would likely benefit from daily doxycyline for prevention 5. Hyponatremia - Improving, mild, IV fluids ordered 6. Hypokalemia -mild, replacement ordered DVT Prophylaxis: Ambulation Review Statement Review Statement: I have personally discussed and reviewed the patient's visit/currently labs/imaging/decision making with Dr. Goss, my supervising attending. Greater that 50 minutes spent with patient, 50% of the time spent with this patient was devoted to counseling and coordination of care.
[2024-11-18] MEDS ORDERED: VANCOMYCIN VIAL (IF PREGNANT) 1 GM in SODIUM CHLORIDE 250 ML IV SCH (14:00)
[2024-11-18] MEDS: VANCOMYCIN 1 GRAM/200 ML PREMIX 1 GM/200 ML BAG IV SCH (14:13)
[2024-11-18] MEDS: ZITHROMAX PO SCH (21:30)
[2024-11-19 04:52] LABS: HEMATOCRIT 28.1 % (42.0-52.0); HEMOGLOBIN 9.5 g/dl (14.0-18.0); MEAN CORPUSCULAR HEMOGLOBIN 29.2 pg (27.0-31.0); MEAN CORPUSCULAR HGB CONC 33.8 (31.8-35.4); MEAN CORPUSCULAR VOLUME 86.5 fl (80.0-94.0); PLATELET COUNT 145 10^3/uL (140-440); RDW COEFFICIENT OF VARIATION 12.3 % (11.6-14.8); RED BLOOD COUNT 3.25 10^6/ul (4.70-6.10); WHITE BLOOD COUNT 4.08 K/ul (4.2-10.2)
[2024-11-19 05:06] LABS: ALBUMIN 2.93 g/dL (3.5-5.0); ALKALINE PHOSPHATASE 84.9 U/L (38-126); ASPARTATE AMINO TRANSFERASE 52.6 U/L (17-59); BILIRUBIN,TOTAL 0.55 mg/dL (0.2-1.3); BLOOD UREA NITROGEN 4.4 mg/dL (9-20); CALCIUM 8.46 mg/dL (8.4-10.2); CARBON DIOXIDE 26.2 mmol/L (22-30.0); CHLORIDE 101.6 mmol/L (98-107); CREATININE 0.58 mg/dL (0.60-1.10); GLUCOSE 103.5 mg/dL (74-106); POTASSIUM 3.84 mmol/L (3.5-5.1); SODIUM 134.3 mmol/L (134.5-145); TOTAL PROTEIN 5.66 g/dL (6.3-8.2)
[2024-11-19] MEDS: DOXYCYCLINE HYCLATE PO SCH (10:49)
--- NOTE | 2024-11-19 12:33 | DCSUM ---
Admission Date Admission Date: 11/17/24 Discharge Date Discharge Date: 11/19/24 Admission Diagnosis Admission Diagnosis: 1. Sepsis in setting of CAP and Axilla Abscess 2. CAP 3. Axilla Abscess, right Discharge Diagnosis Discharge Diagnosis: 1. Sepsis in setting of CAP and Axilla Abscess - ruled out 2. CAP 3. Axilla Abscess, right s/p I&D 4. Hyponatremia 5. Hypokalemia Hospital Provider Hospital Provider: [facility]EL[facility] LOONEY [facility]C, [facility] Summary of History and Physical Summary of History and Physical: 28 yo male presented to the ER initially for wound check to buttocks. Patient states he has issues with "boils" to this region and also found to have one to his R axilla. Concerned for infection. ER provider drainage 3 cc out of R axilla with culture. Upon arrival to ER patient had 102 fever ad tachycardia 112. Reports he has had a cough and not felt well for the past 8 days. Cough with productive yellow/green sputum the last 2-3 days. Found to have R lobe pneumonia, elevated lactic acid, low WBC, low sodium, and low potassium. Admitted to [place] emergency department. Hospital Course Subjective: Patient treated with abx to cover CAP and right axillary abscess. Wound culture grew staph aureus. No fever in last 24 hrs. He is feeling better. Blood cultures negative x48 hrs. Will send home on augmentin and doxy to cover both skin infection and CAP. Discussed areas in his buttocks. Clinically appears to be multiple areas of staph in different stages of healing. Has been an ongoing issue to patient. No areas in buttocks look abscessed (no swelling, induration, significant drainage, warmth). Advised patient to finish abx and to cleanse skin with hibiclens in shower every 2-3 days for next 2 weeks. F/u with pcp. Pt agrees to plan of care. Appearance: Pleasant, No Apparent Distress and Alert HEENT: MMM and Supple CVS: No Murmur Abdomen: Soft, Non-Tender and No Distention Respiratory: No Accessory Muscle Use Extremities: No Edema Additional Findings: Right axilla - abscessed area with no erythema, mild induration, no significant drainage noted. Minimal pain with palpation. Buttocks - Pt had multiple very small <1 cm areas that are ulcerated, one area not opened up yet with white head appearance. Appears to be multiple areas of staph in difference stages of healing, not abscessed Vital Signs: Most Recent Vital Signs Temperature 98.8 F 11/19/24 05:22 Temperature Source Temporal Artery Scan 11/19/24 05:22 Temperature Source Infrared 11/17/24 11:38 Pulse Rate 83 11/19/24 05:22 Respiratory Rate 21 H 11/19/24 05:22 Blood Pressure 149/77 H 11/19/24 05:22 Blood Pressure Mean 101 11/19/24 05:22 Blood Pressure Left Arm 119/71 11/17/24 19:54 Blood Pressure Location Left Arm 11/19/24 05:22 Blood Pressure Position Supine 11/19/24 05:22 O2 Sat by Pulse Oximetry 98 11/19/24 05:22 Oxygen Delivery Method Room Air 11/19/24 12:00 Height 5 ft 8 in 11/17/24 19:54 Weight 66.1 kg 11/17/24 19:54 Telemetry Type Remote Telemetry 11/19/24 07:00 Telemetry Monitoring Continues 11/19/24 07:00 Telemetry Heart Rate 89 11/19/24 07:00 EKG ID Interval 0.15 11/19/24 07:00 EKG QRS Interval 0.06 11/19/24 07:00 Telemetry Strip Reading SR 11/19/24 07:00 Imaging: EXAM: CHEST RADIOGRAPH (1 VIEW) TECHNIQUE: Frontal Chest Radiograph. HISTORY: Shortness of breath COMPARISON: None. FINDINGS: Lines, Tubes, Devices: None Lungs and Pleura: Right mid lung opacities. No pleural effusion or pneumothorax. Cardiac silhouette: Normal. Bones: No acute abnormality. IMPRESSION: Right mid lung opacities concerning for pneumonia. Clinical and imaging follow-up to ensure resolution and exclude other etiologies. Lab Results Last 24 Hours: 11/19/24 04:47 WBC 4.08 L RBC 3.25 L Hgb 9.5 L Hct 28.1 L MCV 86.5 MCH 29.2 MCHC 33.8 RDW Coeff of [place]akan 12.3 Plt Count 145 Neutrophils % (Manual) 19.0 L Band Neutrophils % 3.0 Lymphocytes % (Manual) 45.0 Monocytes % (Manual) 21.0 H Eosinophils % (Manual) 2.0 Basophils % (Manual) 1.0 Metamyelocytes % 3.0 H Reactive Lymphocytes 6.0 H Anisocytosis Not Reportable Sodium 134.3 L Potassium 3.84 Chloride 101.6 Carbon Dioxide 26.2 Anion Gap 10.34 BUN 4.4 L Creatinine 0.58 L Estimated GFR (MDRD) 169.00 BUN/Creatinine Ratio 7.58 Glucose 103.5 Calcium 8.46 Total Bilirubin 0.55 AST 52.6 ALT 40.0 Alkaline Phosphatase 84.9 D Total Protein 5.66 L Albumin 2.93 L Globulin 2.73 Albumin/Globulin Ratio 1.07 Procalcitonin 0.44 H Discharge Instructions Discharge Planning: Discharge Planning > [address] Javier Goss. Discharge Medications: Home Medications Medications at Discharge (Home Meds & RX) amoxicillin 875 mg-potassium clavulanate 125 mg tablet 1 tab PO BID 3 days #6 tabs 11/19/24 doxycycline hyclate 100 mg capsule 100 mg PO Q12HR 7 days #14 caps 11/19/24 Discharge Plan Discharge Discharge Orders: Discharge Patient (ONCE); Ordered 11/19/24 Ordered By: ARIELA LOONEY Activity Restrictions/Additional Instructions: DISCHARGE TO HOME DX: AXILLARY ABSCESS AND PNEUMONIA TAKE HIBICLENS SHOWER EVERY 2-3 DAYS FOR 2 WEEKS ESTABLISH WITH A PRIMARY CARE PHYSICIAN PHARMACY: [facility]1 FINISH ANTIBIOTICS TAKE PROBIOTIC. YOU CAN BUY OVER THE COUNTER ANY PHARMACY. Instructions: Community Acquired Pneumonia (IP) Care Plan Goals: Problem: Impaired Respiratory Status Goal: Exhibit optimal respiratory function Instructions: Activities as tolerated Apply oxygen as ordered Elevate head of bed Notify MD of increased congestion Problem: Activity Intolerance Goal: Demonstrate increased activity intolerance Instructions: Determine cause of activity intolerance Change positions slowly Gradually increase activity Report intolerances to provider Patient Disposition: HOME SELF-CARE Prescriptions: New doxycycline hyclate 100 mg Capsule 100 mg PO Q12HR 7 Days Qty: 14 0RF amoxicillin-pot clavulanate 875-125 mg tablet 1 tab PO BID 3 Days Qty: 6 0RF Rx Instructions: STARTING 11/20/24 Did you review [place] [employer] QUALITY TECHNICIAN for ALL controlled substances?: Not Applicable Discussed opioids are addictive and Narcan is available by prescription or from pharmacy.: No Condition: Stable Referrals: STEVE BONILLA, IMANI [PHYSICIAN PROGRAMMING INSTRUCTOR] - 11/26/24 10:45 am
[2024-11-19 14:30] VITALS: BP 112/71; PULSE 68; RESP 18; TEMP 97.5
[2024-11-20 15:24] LABS: SPECIMEN SOURCE Urine (.); STEP PNEUMO ORGANISM ID Not indicated. (.); STREP PNEUMO AG Negative (Negative); STREP PNEUMO BODY FLUID CULT Not indicated. (.)
== END 2024-11-19 17:00 | disposition home or self-care (01) ==
LOC: MEDSURG B 11:33 → ED 11:33 → MEDSURG B 19:50
PROVIDERS: ADMIT Hospitalist; ATTEND Physician Assistant
DX: Z79.899 Other long term (current) drug therapy; Z20.822 Contact with and (suspected) exposure to COVID-19; J18.9 Pneumonia, unspecified organism; A41.9 Sepsis, unspecified organism; E87.6 Hypokalemia; F17.290 Nicotine dependence, other tobacco product, uncomplicated; R74.02 Elevation of levels of lactic acid dehydrogenase [LDH]; L02.411 Cutaneous abscess of right axilla; L73.2 Hidradenitis suppurativa; R73.9 Hyperglycemia, unspecified; B95.61 Methicillin susceptible Staphylococcus aureus infection as the cause of diseases classified elsewhere; Z51.81 Encounter for therapeutic drug level monitoring; E87.1 Hypo-osmolality and hyponatremia